=== PATIENT | male | born 1975 | race Caucasian/White ===

== ENCOUNTER 2017-03-13 09:59 | Emergency (ER) | payer MEDICARE, MEDICAID ==
[2014-08-09 22:31] VITALS: BMI 21.2
[~2017-03-13 09:59] MED LIST: CYCLOBENZAPRINE10 MG PO; DILAUDID2 MG PO; HYDROCODON-ACE1 EAC7 PO; LEVAQUIN750 MG PO; PERCOCET 10/3251 TA1 PO
== END 2017-03-13 12:20 | disposition home or self-care (01) ==
LOC: D.ER 09:59
DX: K04.7 Periapical abscess without sinus (principal); K08.89 Other specified disorders of teeth and supporting structures; F17.200 Nicotine dependence, unspecified, uncomplicated

== ENCOUNTER 2018-06-29 18:32 | Emergency (ER) | payer MEDICARE, MEDICAID ==
[~2018-06-29] VITALS: Ht 188 cm; Wt 74.1 kg
[2018-06-29 18:37] VITALS: Ht 188 cm; Wt 74.1 kg
[2018-06-29] MEDS ORDERED: NORVASC10 MG PO (18:40)
[2018-06-29] MEDS ORDERED: TRAZODONE HCL50 MG PO (18:40)
[2018-06-29] MEDS ORDERED: ZANAFLEX2 M1 PO (18:40)
[2018-06-29] MEDS ORDERED: NEURONTIN 300300 MG PO (18:41)
[2018-06-29] MEDS ORDERED: LISINOPRIL5 MG PO (18:41)
[2018-06-29 18:57] LABS: BASOPHILS 0.2 % (0-2); EOSINOPHILS 0.1 % (0-7); HEMATOCRIT 41.8 % (42.0-54.0); HEMOGLOBIN 14.8 g/dL (13.5-17.5); IMMATURE GRANULOCYTES 0.3 % (0-5); LYMPHOCYTES 12.1 % (15-50); MCH 31.4 pg (26.0-34.0); MCHC 35.4 g/dL (31.0-37.0); MCV 88.6 fL (80.0-100.0); MEAN PLATELET VOLUME 9.6 fL (7.4-10.4); MONOCYTES 6.1 % (2-11); NEUTROPHILS 81.2 % (40-80); RBC 4.72 10x6/uL (4.20-6.10); RDW 13.7 % (11.5-14.5); WBC 8.7 10x3/uL (4.8-10.8)
[2018-06-29 18:58] LABS: PLATELET COUNT 252 10x3/uL (130-400)
[2018-06-29 19:13] LABS: APPEARANCE CLEAR (CLEAR); BILIRUBIN NEGATIVE (NEGATIVE); COLOR YELLOW (YELLOW); GLUCOSE NEGATIVE (NEGATIVE); KETONE NEGATIVE (NEGATIVE); NITRITE NEGATIVE (NEGATIVE); PROTEIN NEGATIVE (NEGATIVE); SPECIFIC GRAVITY 1.015 (1.005-1.020); UROBILINOGEN NORMAL (NORMAL)
[2018-06-29 19:21] LABS: ALBUMIN 3.8 g/dL (3.4-5.0); ALKALINE PHOSPHATASE 90 U/L (46-116); ALT (SGPT) 25 U/L (10-68); CALC OSMOLALITY 272 mosm/kg (275-300); CALCIUM 8.6 mg/dL (8.5-10.1); CARBON DIOXIDE 28.1 mmol/L (21.0-32.0); CHLORIDE - SERUM 100 mmol/L (98-107); GLUCOSE 102 mg/dL (74-106); POTASSIUM - SERUM 3.8 mmol/L (3.5-5.1); PROTEIN - SERUM 7.2 g/dL (6.4-8.2); SODIUM 137 mmol/L (136-145); UREA NITROGEN 9 mg/dL (7-18); eGFR NON AFRICAN AMERICAN 88 mL/min (90-120)
[2018-06-29] MEDS ORDERED: LOMOTIL TABLET1 TAB PO (22:01)
[2018-06-29] MEDS ORDERED: ZOFRAN ODT4 MG/UDTAB PO (22:01)
[2018-06-29 22:53] VITALS: BP 105/67
== END 2018-06-29 22:53 | disposition home or self-care (01) ==
LOC: D.ER 18:32
PROVIDERS: Family Medicine
DX: A08.4 Viral intestinal infection, unspecified (principal); R51 Headache; R19.7 Diarrhea, unspecified; R50.9 Fever, unspecified; F17.200 Nicotine dependence, unspecified, uncomplicated